=== PATIENT | male | born 1980 | race Hispanic/Latino ===

== ENCOUNTER 2021-12-18 11:35 | Emergency (ER) | payer BC, OTHER ==
[~2021-12-18] VITALS: Ht 170.2 cm; Wt 99.8 kg
[2021-12-18 11:37] VITALS: BP 145/96
[2021-12-18] MEDS ORDERED: KETOROLAC 60 MG VIAL (30MG/ML) IM ONE (12:00)
[2021-12-18] MEDS ORDERED: NAPR-1180 PO (12:12)
== END 2021-12-18 12:35 | disposition home or self-care (01) ==
LOC: EDH 11:35
DX: M70.52 Other bursitis of knee, left knee (principal); Z98.890 Other specified postprocedural states
CPT/HCPCS: 96372; 99284; J1885

== ENCOUNTER 2022-01-10 20:54 | Emergency (ER) | payer BC ==
[~2022-01-10] VITALS: Ht 170.2 cm; Wt 100.2 kg
[~2022-01-10 20:54] MED LIST: NAPR-1180 PO
[2022-01-10 20:56] VITALS: BP 131/91
[2022-01-10] MEDS ORDERED: KETOROLAC 60 MG VIAL (30MG/ML) IM ONE (21:30)
[2022-01-10] MEDS ORDERED: NAPR-1180 PO (21:43)
== END 2022-01-10 21:49 | disposition home or self-care (01) ==
LOC: EDH 20:54
DX: M79.605 Pain in left leg (principal); R00.0 Tachycardia, unspecified; Z79.1 Long term (current) use of non-steroidal anti-inflammatories (NSAID)
CPT/HCPCS: 99284; 73552; 96372; J1885